=== PATIENT | female | born 1940 | race Caucasian/White ===

== ENCOUNTER 2019-06-03 08:59 | Outpatient (REF) | payer MEDICARE, SELFPAY ==
[2019-06-03 12:32] LABS: Estmated Average Glucose 123; Hemoglobin A1C 5.9 % (4.0-6.0)
[2019-06-03 13:58] LABS: Chol HDL Ratio 4.02 mg/dL (0.0-4.40); Cholesterol 169 mg/dL (0-200); Glucose 108 mg/dL (65-115); HDL Cholesterol 42 mg/dL (60-100); LDL Cholesterol Calculated 71 mg/dL (50-129); LDL HDL Ratio 1.69 RATIO (0.00-3.22); Triglycerides 279 mg/dL (0-150)
== END 2019-06-03 09:00 | disposition home or self-care (01) ==
LOC: LAB 08:59
PROVIDERS: Family Provider Nurse Practitioner Family; Visit Provider Dermatology
DX: Z01.89 Encounter for other specified special examinations (principal)
CPT/HCPCS: 80061; 82947; 83036

== ENCOUNTER → 2021-01-14 14:21 | Outpatient (BNVA) | payer MEDICARE, SELFPAY | PROVIDERS: Family Provider Nurse Practitioner Family; PCP Family Medicine; Visit Provider Podiatrist Foot & Ankle Surgery | DX: M79.671 Pain in right foot (principal) | CPT/HCPCS: 73630 ==

== ENCOUNTER → 2021-08-13 13:39 | Outpatient (BNVA) | payer MEDICARE, SELFPAY | PROVIDERS: Family Provider Nurse Practitioner Family; PCP Family Medicine; Visit Provider Podiatrist Foot & Ankle Surgery | DX: L84 Corns and callosities (principal); A80.9 Acute poliomyelitis, unspecified; M21.371 Foot drop, right foot; Q82.8 Other specified congenital malformations of skin; Z87.891 Personal history of nicotine dependence | CPT/HCPCS: 99213 ==

== ENCOUNTER → 2021-10-15 13:10 | Outpatient (BNVA) | payer MEDICARE, SELFPAY | PROVIDERS: Family Provider Nurse Practitioner Family; PCP Family Medicine; Visit Provider Podiatrist Foot & Ankle Surgery | DX: Q82.8 Other specified congenital malformations of skin (principal); L84 Corns and callosities; A80.9 Acute poliomyelitis, unspecified; M21.371 Foot drop, right foot; M79.671 Pain in right foot | CPT/HCPCS: 17110 ==

== ENCOUNTER → 2022-01-20 13:02 | Outpatient (BNVA) | payer MEDICARE, SELFPAY | PROVIDERS: Family Provider Nurse Practitioner Family; PCP Family Medicine; Visit Provider Podiatrist Foot & Ankle Surgery | DX: Q82.8 Other specified congenital malformations of skin (principal); L84 Corns and callosities; A80.9 Acute poliomyelitis, unspecified; M21.371 Foot drop, right foot | CPT/HCPCS: 17110 ==

== ENCOUNTER → 2022-03-24 13:20 | Outpatient (BNVA) | payer MEDICARE, SELFPAY | PROVIDERS: Family Provider Nurse Practitioner Family; PCP Family Medicine; Visit Provider Podiatrist Foot & Ankle Surgery | DX: L84 Corns and callosities (principal); A80.9 Acute poliomyelitis, unspecified; M21.371 Foot drop, right foot; Q82.8 Other specified congenital malformations of skin | CPT/HCPCS: 17110 ==

== ENCOUNTER → 2022-06-23 13:21 | Outpatient (BNVA) | payer MEDICARE, SELFPAY | PROVIDERS: Family Provider Nurse Practitioner Family; PCP Family Medicine; Visit Provider Podiatrist Foot & Ankle Surgery | DX: Q82.8 Other specified congenital malformations of skin (principal); L84 Corns and callosities; A80.9 Acute poliomyelitis, unspecified; M21.371 Foot drop, right foot | CPT/HCPCS: 17110 ==

== ENCOUNTER 2022-08-21 08:41 | Outpatient (CLI) | payer MEDICARE, SELFPAY ==
--- NOTE | 2022-08-21 09:05 | NM_ITS ---
WS: [id number] NUCLEAR MEDICINE LUNG VENTILATION AND PERFUSION CLINICAL INFORMATION: ELEVATED D DIMER, HYPOXIA TECHNIQUE: Ventilation/perfusion lung scan with 32.1 mCi technetium 99m DTPA. 7.7 mCi MAA COMPARISON: Chest radiograph 08/21/22 FINDINGS: Cardiomegaly. Tortuous thoracic aorta. Aortic calcification. Elevation LEFT hemidiaphragm. LEFT pleur al effusion. Infiltrate/atelectasis LEFT lower lobe. Chronic emphysematous changes. Normal radiotracer uptake on the perfusion images. Patchy radiotracer deposition on the ventilatory i mages compatible with chronic emphysematous changes. Central radiotracer deposition along the bronchi . A few matched defects. No mismatched ventilation/perfusion defects to suggest pulmonary embolus. NM/NM pul vent and perfus* [id number] IMPRESSION: 1. Low probability for pulmonary embolus.
--- NOTE | 2022-08-21 09:17 | XR_ITS ---
WS: [id number] PROCEDURE: XR chest 2V* [id number] CLINICAL INFORMATION: VQ SCAN COMPARISON, SHORTNESS OF BREATH, ELEVATED D DIMER COMPARISON: None. FINDINGS: Heart: Cardiomegaly. Aortic calcification. Lungs: Hyperinflation. Chronic emphysematous changes. Small LEFT pleural effusion with volume loss LE FT lower lobe. Patchy infiltrate/atelectasis LEFT lower lobe. Bones: Thoracolumbar scoliosis. Osteopenia. Aortic calcification. Partially visualized lumbar fusion. XR/XR chest 2V* [id number] IMPRESSION: 1. Small LEFT pleural effusion with LEFT lower lobe pneumonia. 2. Volume loss LEFT lower lobe with elevation LEFT hemidiaphragm. 3. Cardiomegaly.
== END 2022-08-21 08:42 | disposition home or self-care (01) ==
PROVIDERS: PCP Family Medicine; Visit Provider Registered Nurse
DX: R09.02 Hypoxemia (principal); R79.89 Other specified abnormal findings of blood chemistry; J90 Pleural effusion, not elsewhere classified; J18.9 Pneumonia, unspecified organism; I51.7 Cardiomegaly
CPT/HCPCS: 71046; 78014; A9540; A9567

== ENCOUNTER → 2022-09-15 12:33 | Outpatient (BNVA) | payer MEDICARE, SELFPAY | PROVIDERS: PCP Family Medicine; Visit Provider Podiatrist Foot & Ankle Surgery | DX: Q82.8 Other specified congenital malformations of skin (principal); A80.9 Acute poliomyelitis, unspecified; M21.371 Foot drop, right foot | CPT/HCPCS: 17110 ==

== ENCOUNTER → 2022-10-02 14:01 | Outpatient (BNVA) | payer MEDICARE, SELFPAY | PROVIDERS: PCP Family Medicine; Referring Provider Registered Nurse; Visit Provider Student in an Organized Health Care Education/Training Program | DX: M65.321 Trigger finger, right index finger (principal); M65.331 Trigger finger, right middle finger; M65.341 Trigger finger, right ring finger | CPT/HCPCS: 20551; 20552; 73130; 99204; J3301; J3490 ==

== ENCOUNTER → 2023-06-15 14:46 | Outpatient (BNVA) | payer MEDICARE, SELFPAY | PROVIDERS: PCP Family Medicine; Visit Provider Podiatrist Foot & Ankle Surgery | DX: A80.9 Acute poliomyelitis, unspecified; M21.371 Foot drop, right foot; Q82.8 Other specified congenital malformations of skin | CPT/HCPCS: 17110 ==

== ENCOUNTER → 2023-09-22 15:14 | Outpatient (BNVA) | payer MEDICARE, SELFPAY | PROVIDERS: PCP Family Medicine; Visit Provider Podiatrist Foot & Ankle Surgery | DX: A80.9 Acute poliomyelitis, unspecified; M21.371 Foot drop, right foot; Q82.8 Other specified congenital malformations of skin | CPT/HCPCS: 17110 ==

== ENCOUNTER → 2023-12-22 15:08 | Outpatient (BNVA) | payer MEDICARE, SELFPAY | PROVIDERS: PCP Family Medicine; Visit Provider Podiatrist Foot & Ankle Surgery | DX: A80.9 Acute poliomyelitis, unspecified; M21.371 Foot drop, right foot; Q82.8 Other specified congenital malformations of skin | CPT/HCPCS: 17110 ==

== ENCOUNTER → 2024-04-05 13:09 | Outpatient (BNVA) | payer MEDICARE, SELFPAY | PROVIDERS: PCP Family Medicine; Visit Provider Podiatrist Foot & Ankle Surgery | DX: A80.9 Acute poliomyelitis, unspecified; M21.371 Foot drop, right foot; Q82.8 Other specified congenital malformations of skin | CPT/HCPCS: 17110 ==

== ENCOUNTER → 2024-07-05 14:10 | Outpatient (BNVA) | payer MEDICARE, SELFPAY | PROVIDERS: PCP Family Medicine; Visit Provider Podiatrist Foot & Ankle Surgery | DX: Q82.8 Other specified congenital malformations of skin (principal); A80.9 Acute poliomyelitis, unspecified; M21.371 Foot drop, right foot; M79.671 Pain in right foot | CPT/HCPCS: 17110 ==

== ENCOUNTER → 2024-10-05 14:20 | Outpatient (BNVA) | payer MEDICARE, SELFPAY | PROVIDERS: PCP Family Medicine; Visit Provider Podiatrist Foot & Ankle Surgery | DX: Q82.8 Other specified congenital malformations of skin (principal); A80.9 Acute poliomyelitis, unspecified; M21.371 Foot drop, right foot | CPT/HCPCS: 17110 ==

== ENCOUNTER → 2024-11-02 09:43 | Outpatient (BNVA) | payer MEDICARE, SELFPAY | PROVIDERS: PCP Family Medicine; Visit Provider Podiatrist Foot & Ankle Surgery | DX: M25.571 Pain in right ankle and joints of right foot (principal); M79.671 Pain in right foot; L84 Corns and callosities; Q66.71 Congenital pes cavus, right foot; Q66.72 Congenital pes cavus, left foot; G89.29 Other chronic pain; A80.9 Acute poliomyelitis, unspecified; M77.41 Metatarsalgia, right foot; M77.42 Metatarsalgia, left foot | CPT/HCPCS: 73610; 73630; 99214 ==

== ENCOUNTER 2024-12-21 15:16 | Outpatient (CLI) | payer MEDICARE, SELFPAY | END 2024-12-21 15:17 | disposition home or self-care (01) | LOC: SPT 15:17 | PROVIDERS: PCP Family Medicine; Visit Provider Podiatrist Foot & Ankle Surgery | DX: Z46.89 Encounter for fitting and adjustment of other specified devices (principal); Q66.71 Congenital pes cavus, right foot; A80.9 Acute poliomyelitis, unspecified | CPT/HCPCS: L3030 ==